=== PATIENT | female | born 1970 | race Caucasian/White ===

== ENCOUNTER 2023-01-12 17:35 | Emergency (ER) | payer BC ==
[2023-01-12] MEDS ORDERED: Lidocaine 1% 30 ML SDV INJECT ONE (17:38)
[2023-01-12] MEDS ORDERED: Diphtheria,Pertussis(Acell),Tetanus Vaccine 0.5 ML Syringe IM ONE (17:57)
== END 2023-01-12 18:37 | disposition home or self-care (01) ==
LOC: LB.ED 17:35
DX: S61.432A Puncture wound without foreign body of left hand, initial encounter (principal); Z88.2 Allergy status to sulfonamides; Z23 Encounter for immunization; W26.8XXA Contact with other sharp object(s), not elsewhere classified, initial encounter
CPT/HCPCS: 90471; 90715; 99282; 99282-25